=== PATIENT | female | born 1995 | race Caucasian/White ===

== ENCOUNTER 2019-02-25 08:47 | Emergency (ER) | payer OTHER ==
[~2019-02-25] VITALS: Ht 167.6 cm; Wt 61.2 kg
[2019-02-25 08:56] VITALS: BP 112/75
[2019-02-25] MEDS ORDERED: LIDOCAINE 1% INJ 50 ML MDV IJ ONE (09:12)
[2019-02-25] MEDS ORDERED: LIDOCAINE HCL/PF 1% 30 ML VIAL TP ONE (09:30)
--- NOTE | 2019-02-25 10:10 | NUR ---
I&D DONE. PT PROVIDED W/ WOUND CARE. D/C IN STABLE CONDITION.
== END 2019-02-25 10:32 | disposition home or self-care (01) ==
LOC: ER 08:47
DX: L03.011 Cellulitis of right finger (principal)
CPT/HCPCS: 10060; 99283; A6402; J3490 ×2